=== PATIENT | female | born 1945 | race Caucasian/White ===

== ENCOUNTER 2018-06-29 08:52 | Emergency (ER) | payer MEDICARE, OTHER ==
[~2018-06-29] VITALS: Ht 157.5 cm; Wt 48.5 kg
[2018-06-29] MEDS ORDERED: NS IV 1000 ML 1,000 ML IV SCH ×2 (09:15→11:00)
--- NOTE | 2018-06-29 09:30 | ED General ---
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 Patient reports severe diarrhea and generalized weakness for 5 days, nausea and vomiting started yesterday. Nursing Sepsis Screen: No Definite Risk Source of Information: Patient Exam Limitations: No Limitations History of Present Illness Date Seen by Provider: Jun 29, 2018 Time Seen by Provider: 09:26 Initial Comments Patient is a 72-year-old female presents with acute diarrhea illness for the past several days accompanied with generalized weakness and dizziness.. Patient reports fecal incontinence with multiple bowel movements throughout the day. Bowel movements are nonbloody. No recent antibiotics, history of C. difficile. Patient is currently on chemotherapy every other week for treatment of appendiceal cancer with metastases states she has had intermittent diarrhea on chemotherapy over the past 2 years. Denies nausea, abdominal pain. Does report loss of appetite and decreased oral intake. Patient state that she hours ago and has only had water to drink since that time. No other acute symptoms or complaints. Patient's bedside by spouse. Timing/Duration: 5-6 Days Associated Systoms: Loss of Appetite, Malaise, Weakness Allergies and Home Medications Allergies Coded Allergies: No Known Drug Allergies (Unverified , 06/29/18) Patient Home Medication List Home Medication List Reviewed: Yes Review of Systems Review of Systems Constitutional: dizziness; No fever; malaise EENTM: see HPI Respiratory: no symptoms reported Cardiovascular: No edema, No palpitations, No syncope Gastrointestinal: No abdominal pain; diarrhea; No nausea Genitourinary: No hematuria, No pain Musculoskeletal: no symptoms reported Past Ceogsxr-Zbkays-Qrbmhr Hx Past Med/Social Hx: Reviewed Nursing Past Med/Soc Hx Patient Social History Alcohol Use: Denies Use Recent Foreign Travel: No Contact w/Someone Who Travel: No Recent Infectious Disease Expo: No Physical Exam Vital Signs Vital Signs - First Documented 06/29/18 08:53 Temp 98.6 Pulse 119 Resp 18 B/P (MAP) 124/87 (99) Pulse Ox 100 O2 Delivery Room Air Capillary Refill : Less Than 3 Seconds Height, Weight, BMI Height: 5'2.00" Weight: 107lbs. oz. 48.814363jb; BMI Method:Stated General Appearance: No Apparent Distress Eyes: Bilateral Eye Normal Inspection, Bilateral Eye PERRL, Bilateral Eye EOMI HEENT: PERRL/EOMI, TMs Normal, Normal ENT Inspection, Pharynx Normal; No Moist Mucous Membranes (. Mucous membranes); Other Neck: Full Range of Motion, Normal Inspection, Non Tender, Supple, Carotid Bruit Cardiovascular: Tachycardia Gastrointestinal: Normal Bowel Sounds Rectal: Normal Exam Skin: Normal Color Focused Exam Lactate Level 06/29/18 09:30: Lactic Acid Level 1.69 Lactic Acid Level Laboratory Tests Test 06/29/18 09:30 Lactic Acid Level 1.69 MMOL/L (0.50-2.00) Progress/Results/Core Measures Suspected Sepsis Recent Fever Within 48 Hours: No Infection Criteria Present: None New/Unexplained Altered Menta: No Sepsis Screen: No Definite Risk SIRS Temperature:98.6 Pulse: 119 Respiratory Rate: 18 Laboratory Tests 06/29/18 09:30: White Blood Count 5.7 Blood Pressure 124 /87 Mean: 99 06/29/18 09:30: Lactic Acid Level 1.69 Laboratory Tests 06/29/18 09:30: Creatinine 1.25, Platelet Count 508H, Total Bilirubin 0.2 Results/Orders Lab Results Laboratory Tests Test 06/29/18 09:30 06/29/18 10:30 06/29/18 10:40 Range/Units White Blood Count 5.7 4.3-11.0 10^3/uL Red Blood Count 3.24 L 4.35-5.85 10^6/uL Hemoglobin 9.5 L 11.5-16.0 G/DL Hematocrit 30 L 35-52 % Mean Corpuscular Volume 93 80-99 FL Mean Corpuscular Hemoglobin 29 25-34 PG Mean Corpuscular Hemoglobin Concent 32 32-36 G/DL Red Cell Distribution Width 17.4 H 10.0-14.5 % Platelet Count 508 H 130-400 10^3/uL Mean Platelet Volume 8.9 7.4-10.4 FL Neutrophils (%) (Auto) 75 42-75 % Lymphocytes (%) (Auto) 14 12-44 % Monocytes (%) (Auto) 10 0-12 % Eosinophils (%) (Auto) 0 0-10 % Basophils (%) (Auto) 0 0-10 % Neutrophils # (Auto) 4.3 1.8-7.8 X 10^3 Lymphocytes # (Auto) 0.8 L 1.0-4.0 X 10^3 Monocytes # (Auto) 0.6 0.0-1.0 X 10^3 Eosinophils # (Auto) 0.0 0.0-0.3 10^3/uL Basophils # (Auto) 0.0 0.0-0.1 10^3/uL Sodium Level 144 135-145 MMOL/L Potassium Level 3.7 3.6-5.0 MMOL/L Chloride Level 106 98-107 MMOL/L Carbon Dioxide Level 14 L 21-32 MMOL/L Anion Gap 24 H 5-14 MMOL/L Blood Urea Nitrogen 17 7-18 MG/DL Creatinine 1.25 0.60-1.30 MG/DL Estimat Glomerular Filtration Rate 42 BUN/Creatinine Ratio 14 Glucose Level 103 70-105 MG/DL Lactic Acid Level 1.69 0.50-2.00 MMOL/L Calcium Level 7.9 L 8.5-10.1 MG/DL Corrected Calcium 8.8 8.5-10.1 MG/DL Magnesium Level 1.5 L 1.8-2.4 MG/DL Total Bilirubin 0.2 0.1-1.0 MG/DL Aspartate Amino Transf (AST/SGOT) 18 5-34 U/L Alanine Aminotransferase (ALT/SGPT) 19 0-55 U/L Alkaline Phosphatase 154 H 40-136 U/L Total Protein 5.9 L 6.4-8.2 GM/DL Albumin 2.9 L 3.2-4.5 GM/DL Urine Color YELLOW Urine Clarity CLEAR Urine pH 6.5 5-9 Urine Specific Caro 1.020 1.016-1.022 Urine Protein TRACE NEGATIVE Urine Glucose (UA) NEGATIVE NEGATIVE Urine Ketones TRACE H NEGATIVE Urine Nitrite NEGATIVE NEGATIVE Urine Bilirubin NEGATIVE NEGATIVE Urine Urobilinogen 0.2 NORMAL MG/DL Urine Leukocyte Esterase NEGATIVE NEGATIVE Urine RBC (Auto) TRACE H NEGATIVE Urine RBC 5-10 H /HPF Urine WBC NONE /HPF Urine Squamous Epithelial Cells RARE /HPF Urine Crystals NONE /LPF Urine Bacteria NONE /HPF Urine Casts NONE /LPF Urine Mucus NEGATIVE /LPF Urine Culture Indicated NO My Orders Orders - LUZ AVILA DO Cbc With Automated Diff (06/29/18 08:54) Comprehensive Metabolic Panel (06/29/18 08:54) Ua Culture If Indicated (06/29/18 08:54) Ekg Tracing (06/29/18 08:54) Thyroid Stimulating Hormone (06/29/18 08:58) Ns Iv 1000 Ml (Sodium Chloride 0.9%) (06/29/18 09:15) Blood Culture (06/29/18 09:03) Lactic Acid Analyzer (06/29/18 09:03) Magnesium (06/29/18 08:54) Blood Culture (06/29/18 10:21) Ns Iv 1000 Ml (Sodium Chloride 0.9%) (06/29/18 11:00) Magnesium 1 Gm/100 Ml Ivpb (Magnesium Cristobal (06/29/18 11:00) Vital Signs/I&O 06/29/18 06/29/18 08:53 12:01 Temp 98.6 Pulse 119 69 Resp 18 14 B/P (MAP) 124/87 (99) 105/93 (97) Pulse Ox 100 95 O2 Delivery Room Air Room Air Capillary Refill : Less Than 3 Seconds Blood Pressure Mean: 99 Progress Note : Time: 12:18 Progress Note Patient symptoms significant improvement with IV fluids and antiemetics. Resting comfortably in bed. Recommend continued supportive care with antiemetics at home and home diarrhea medication. Please be follow-up in 1-2 days for reevaluation. Return precautions reviewed Departure Impression Primary Impression: Diarrhea Additional Impressions: Dehydration Hypomagnesemia Disposition: 01 HOME, SELF-CARE Condition: Stable Transfer Method of Transfer: EMS Departure-Patient Inst. Decision time for Depature: 12:20 Add. Discharge Instructions: Please take nausea medication as prescribed and home diarrhea medication as needed. Crease fluid and calorie intake and follow up with PCP in 2-3 days. Return to the ED if new or worsening symptoms. All discharge instructions reviewed with patient and/or family. Voiced understanding. Scripts Ondansetron (Ondansetron Odt) 4 Mg Tab.rapdis 4 MG PO Q6H, #10 TAB Prov: LUZ AVILA DO 06/29/18 LUZ AVILA DO Jun 29, 2018 09:30
[2018-06-29 10:00] LABS: HEMATOCRIT 30 % (35-52); HEMOGLOBIN 9.5 G/DL (11.5-16.0); MEAN CORPUSCULAR HEMOGLOBIN 29 PG (25-34); MEAN CORPUSCULAR HGB CONC 32 G/DL (32-36); MEAN CORPUSCULAR VOLUME 93 FL (80-99); MEAN PLATELET VOLUME 8.9 FL (7.4-10.4); PLATELET COUNT 508 10^3/uL (130-400); RED CELL DISTRIBUTION WIDTH 17.4 % (10.0-14.5); WHITE BLOOD COUNT 5.7 10^3/uL (4.3-11.0)
[2018-06-29 10:01] LABS: BASOPHILS % (AUTO) 0 % (0-10); EOSINOPHILS % (AUTO) 0 % (0-10); LYMPHOCYTES # (AUTO) 0.8 X 10^3 (1.0-4.0); LYMPHOCYTES % (AUTO) 14 % (12-44); MONOCYTES # (AUTO) 0.6 X 10^3 (0.0-1.0); MONOCYTES % (AUTO) 10 % (0-12); NEUTROPHILS # (AUTO) 4.3 X 10^3 (1.8-7.8); NEUTROPHILS % (AUTO) 75 % (42-75)
[2018-06-29 10:16] LABS: ALBUMIN 2.9 GM/DL (3.2-4.5); BILIRUBIN,TOTAL 0.2 MG/DL (0.1-1.0); CALCIUM 7.9 MG/DL (8.5-10.1); CREATININE SERUM 1.25 MG/DL (0.60-1.30); MAGNESIUM 1.5 MG/DL (1.8-2.4); POTASSIUM 3.7 MMOL/L (3.6-5.0); TOTAL PROTEIN 5.9 GM/DL (6.4-8.2)
[2018-06-29] MEDS ORDERED: MAGNESIUM 1 GM/100 ML IVPB 100 ML IV SCH (11:00)
[2018-06-29 11:06] LABS: CLARITY,URINE CLEAR; COLOR,URINE YELLOW; GLUCOSE, URINE (UA) NEGATIVE (NEGATIVE); KETONES,URINE TRACE (NEGATIVE); PH,URINE 6.5 (5-9); PROTEIN,URINE TRACE (NEGATIVE)
[2018-06-29 11:07] LABS: BILIRUBIN,URINE NEGATIVE (NEGATIVE); LEUKOCYTE ESTERASE ,URINE NEGATIVE (NEGATIVE); NITRITE,URINE NEGATIVE (NEGATIVE); SQUAMOUS EPITHELIAL CELL,UR RARE /HPF; UROBILINOGEN,URINE 0.2 MG/DL (NORMAL)
[2018-06-29 12:01] VITALS: BP 105/93
[2018-06-29] MEDS ORDERED: ONDA4TAB11 PO (12:21)
[2018-06-29 13:15] VITALS: BP 110/83
[2018-06-29] MEDS ORDERED: ALPR0.5T7 (14:21)
[2018-06-29] MEDS ORDERED: AMLO5TAB9 (14:21)
[2018-06-29] MEDS ORDERED: TEMA15CA (14:21)
[2018-06-29] MEDS ORDERED: PROC10TA10 (14:21)
[2018-06-29] MEDS ORDERED: [UNRECOGNIZED DRUG - CODE] (14:21)
[2018-06-29] MEDS ORDERED: TEMA30CA (14:21)
[2018-06-29] MEDS ORDERED: LEVO100T7 (14:21)
[2018-06-29] MEDS ORDERED: DOXY100C2 (14:21)
[2018-06-29] MEDS ORDERED: FURO40TA4 (14:21)
[2018-06-29] MEDS ORDERED: CYCL5TAB (14:21)
[2018-06-29] MEDS ORDERED: MORP-34 (14:21)
[2018-06-29] MEDS ORDERED: POTA10CA43 (14:21)
[2018-06-29] MEDS ORDERED: POTA10TA10 (14:21)
[2018-06-29] MEDS ORDERED: LIDO15SO2 (14:21)
[2018-06-29] MEDS ORDERED: MORP-33 (14:21)
[2018-06-29] MEDS ORDERED: HYDR-3816 (14:21)
[2018-06-29] MEDS ORDERED: ONDA8TAB13 (14:21)
--- OUTSIDE RECORDS SUMMARY | 2018-07-01 08:56 | XMS REPORT | Clinical Summary ---
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 Metabolic Panel, Magnesium, Phos - Chemistry sodium, serum 140 mmol/L [phone]/02/05 carbon dioxide, venous blood 26.7 mmol/L 21.0-32.0 potassium, serum 3.9 mmol/L 3.5-5.2 chloride, serum 104 mmol/L 98-107 blood glucose 76 mg/dL 65-95 urea nitrogen, blood 26 mg/dL 7-18 creatinine, serum 1.29 mg/dL 0.60-1.30 Estimated Glomerular Filtration Rate (calc) 43 (?) mL/min/1.73m2 =OR > 60 mL/min alanine aminotransferase (SGPT), serum 19 U/L 12-78 aspartate aminotransferase (SGOT), serum 23 U/L 15-37 calcium, serum 7.5 mg/dL 8.5-10.1 bilirubin, serum, total 0.20 mg/dL 0.00-1.00 Lab Report: CBC W/DIFF, Comp. Metabolic Panel, Magnesium, Phos - Hematology leukocyte count, blood 5.8 10^3/MM^3 10*3/mm3 4.6-10.2 neutrophils as percent of blood leukocytes 54.9 % 42.2-75.2 monocytes as percent of blood leukocytes 13.4 % 1.7-9.3 lymphocytes as percent of blood leukocytes 27.9 % 20.5-51.1 erythrocyte (RBC) count 3.33 10^6/MM^3 10*6/mm3 3.80-5.80 hemoglobin, blood 9.2 g/dL 12.0-16.0 hematocrit, blood 31.7 % 37.0-47.0 mean corpuscular volume, RBC 95 fL 80-97 mean corpuscular hemoglobin, RBC 27.5 pg 27.0-31.2 mean corpuscular hemoglobin concentration, RBC 28.9 G/DL % 31.8- 35.4 red blood cell distribution width 17.6 % 11.6-14.8 platelet count 413 10^3/MM^3 10*3/mm3 142-424 Lab Report: CBC W/DIFF, Comp. Metabolic Panel, Magnesium, Phos - Lab Alkaline phosphatase 183 50-136
--- OUTSIDE RECORDS SUMMARY | 2018-07-01 08:56 | XMS REPORT | Clinical Summary ---
Author Author Admin, KIKI Organization [employer] Address Unknown Phone Unavailable Allergies, Adverse Reactions, [...] Phos - Chemistry sodium, serum 140 mmol/L [phone]/02/05 carbon dioxide, venous blood 26.7 mmol/L 21.0-32.0 [...] 8.5-10.1 bilirubin, serum, total 0.20 mg/dL 0.00-1.00 sodium, serum 142 mmol/L [phone]/02/19 carbon dioxide, venous blood 24.0 mmol/L 21.0-32.0 potassium, serum 4.0 mmol/L 3.5-5.2 chloride, serum 105 mmol/L 98-107 blood glucose 95 mg/dL 65-95 urea nitrogen, blood 29 mg/dL 7-18 creatinine, serum 1.64 mg/dL 0.60-1.30 Estimated Glomerular Filtration Rate (calc) 33 (?) mL/min/1.73m2 =OR > 60 mL/min alanine aminotransferase (SGPT), serum 28 U/L 12-78 aspartate aminotransferase (SGOT), serum 24 U/L 15-37 calcium, serum 7.5 mg/dL 8.5-10.1 bilirubin, serum, total 0.30 mg/dL 0.00-1.00 Lab Report: CBC W/DIFF, Comp. Metabolic Panel, Magnesium, Phos - Hematology leukocyte count, blood 7.3 10^3/MM^3 10*3/mm3 4.6-10.2 neutrophils as percent of blood leukocytes 64.0 % 42.2-75.2 monocytes as percent of blood leukocytes 9.2 % 1.7-9.3 lymphocytes as percent of blood leukocytes 22.6 % 20.5-51.1 erythrocyte (RBC) count 3.65 10^6/MM^3 10*6/mm3 3.80-5.80 hemoglobin, blood 10.8 g/dL 12.0-16.0 hematocrit, blood 34.5 % 37.0-47.0 mean corpuscular volume, RBC 94 fL 80-97 mean corpuscular hemoglobin, RBC 29.6 pg 27.0-31.2 mean corpuscular hemoglobin concentration, RBC 31.3 G/DL % 31.8- 35.4 red blood cell distribution width 17.0 % 11.6-14.8 platelet count 399 10^3/MM^3 10*3/mm3 682-618 2982/02/05 leukocyte count, blood 5.8 10^3/MM^3 10*3/mm3 4.6-10.2 [...] Phos - Lab Alkaline phosphatase 183 50-136 Alkaline phosphatase 188 50-136
--- OUTSIDE RECORDS SUMMARY | 2018-07-01 08:56 | XMS REPORT | Clinical Summary ---
Author Author Admin, KIKI Organization [employer] Address Unknown Phone Unavailable Allergies, Adverse Reactions, [...] Phos - Chemistry sodium, serum 140 mmol/L [phone]/02/05 carbon dioxide, venous blood 26.7 mmol/L 21.0-32.0 [...]
--- OUTSIDE RECORDS SUMMARY | 2018-07-01 08:57 | XMS REPORT | Clinical Summary ---
Author Author Admin, KIKI Organization [employer] Address Unknown Phone Unavailable Allergies, Adverse Reactions, [...] Phos - Chemistry sodium, serum 140 mmol/L [phone]/02/05 carbon dioxide, venous blood 26.7 mmol/L 21.0-32.0 [...]
--- OUTSIDE RECORDS SUMMARY | 2018-07-01 08:57 | XMS REPORT | Clinical Summary ---
Author Author Admin, [facility] Organization [facility] Address Unknown Phone Unavailable Allergies, Adverse Reactions, Alerts Allergy Name Reaction Description Start Date Severity Status Provider Allergies Unknown Conditions or Problems Problem Name Problem Code Onset Date Status Entry Date Provider Comment Standard Description Annotate Appendiceal cancer 153.5 Active Makayla Mariscal LRT Malignant neoplasm of appendix vermiformis Medication List Medication Instructions Start Date Stop Date Generic Name NDC Status Provider Patient Instruction Drug Treatment Unknown - unknown
== END 2018-06-29 12:50 | disposition home or self-care (01) ==
LOC: ER FS 08:55
DX: R19.7 Diarrhea, unspecified (principal); E86.0 Dehydration; E83.42 Hypomagnesemia; C18.1 Malignant neoplasm of appendix; Z86.19 Personal history of other infectious and parasitic diseases
CPT/HCPCS: 36415; 80053; 81000; 83605; 83735; 84443; 85025; 87040

== ENCOUNTER 2018-07-17 12:17 | Inpatient (IN) | payer MEDICARE, OTHER ==
[~2018-07-17] VITALS: Ht 157.5 cm; Wt 51.1 kg
[~2018-07-17 12:17] MED LIST: ALPR0.5T7 PO; AMLO5TAB9 PO; CYCL5TAB PO; DOXY100C2; FURO40TA4; HYDR-3816 PO; LEVO100T7 PO; LIDO15SO2; MORP-33; MORP-34 PO; ONDA4TAB11 PO; ONDA8TAB13; POTA10CA43; POTA10TA10 PO; PROC10TA10; TEMA15CA PO; TEMA30CA; [UNRECOGNIZED DRUG - CODE] PO
[2018-07-17 12:41] VITALS: BP_SYST 104; BP_SYST 75; BP_SYST 89; BP_DIAS 53; BP_DIAS 68; BP_DIAS 69
--- NOTE | 2018-07-17 12:43 | ED Syncope ---
General Stated Complaint: GENERAL WEAKNESS; DIZZY; FALL Source of Information: Patient History of Present Illness Date Seen by Provider: Jul 17, 2018 Time Seen by Provider: 12:29 Initial Comments The patient presents to ER by private conveyance with her spouse and chief complaint that yesterday she had a near syncopal episode and caught herself before she fell completely. She did not pass out and her members the entire event. She was just walking through the kitchen and use the chair to catch her fall. She did not strike her head and is not having any pain nausea fevers chills cough shortness of breath diarrhea or constipation. 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 Trujillo is her oncologist. She was here a few weeks ago because her magnesium was low and had to get a fusion of that. She does not have a history of syncopal episodes or falls. She called her doctor and they ordered some labs for her to do; so she came out to the ER. She' s had a surgery on her abdomen to remove the appendiceal tumor but no other surgeries. She's not sure what medicines she takes. She knows her doctor's been reducing medicines recently and since she's not sure which ones she quit taking in the past week. Allergies and Home Medications Allergies Coded Allergies: No Known Drug Allergies (Unverified , 06/29/18) Home Medications Ondansetron 4 Mg Tab.rapdis, 4 MG PO Q6H Prescribed by: LUZ AVILA on 06/29/18 1221 Patient Home Medication List Home Medication List Reviewed: Yes Review of Systems Constitutional: No chills, No fever EENTM: No ear pain, No eye pain Respiratory: No cough, No short of breath Cardiovascular: No chest pain, No edema, No Hx of Intervention, No palpitations Gastrointestinal: No abdominal pain, No constipation, No diarrhea, No dysphagia , No nausea Genitourinary: No discharge, No dysuria Musculoskeletal: No back pain, No joint pain Skin: No pruritus, No rash Psychiatric/Neurological: Denies Anxiety, Denies Depressed Past Dlqjpbw-Cletwt-Wmsaes Hx Patient Social History Alcohol Use: Denies Use Recreational Drug Use: No Smoking Status: Never a Smoker 2nd Hand Smoke Exposure: No Recent Foreign Travel: No Recent Hopitalizations: No Seasonal Allergies Seasonal Allergies: No Past Medical History Surgeries: No Respiratory: No Cardiac: No Neurological: No Genitourinary: No Gastrointestinal: No Musculoskeletal: No Endocrine: No HEENT: No Cancer: Yes (Primary site: appendix, mets to colon and pancreas) What Type of Treatment Did You: Chemotherapy Psychosocial: No Integumentary: No Blood Disorders: No Physical Exam Vital Signs Vital Signs - First Documented 07/17/18 12:25 Temp 98.8 Pulse 110 Resp 20 B/P (MAP) 125/79 (94) Pulse Ox 98 O2 Delivery Room Air Capillary Refill : Height, Weight, BMI Height: 5'2.00" Weight: 107lbs. oz. 48.009064ia; BMI Method:Stated General Appearance: No Apparent Distress, WD/WN HEENT: PERRL/EOMI, Pharynx Normal, Moist Mucous Membranes, Other (atraumatic head without Crawford sign, raccoon eyes or hemotympanum) Neck: Full Range of Motion, Normal Inspection, Non Tender, Supple, Carotid Bruit Cardiovascular: Regular Rate, Rhythm, No Edema, Normal Peripheral Pulses Respiratory: Lungs Clear, Normal Breath Sounds, No Accessory Muscle Use, No Respiratory Distress Gastrointestinal: Normal Bowel Sounds, Non Tender, Soft Extremities: Normal Capillary Refill, Normal Inspection, Normal Range of Motion , Non Tender, No Calf Tenderness, No Pedal Edema Neurologic/Psychiatric: Alert, Oriented x3, No Motor/Sensory Deficits Focused Exam Sepsis Stage: Septic Shock Possible Source: Genitouriary Lactate Level 07/17/18 14:45: Lactic Acid Level 1.23 Time of Focused Exam: 17:09 Respiratory: Lungs Clear, Normal Breath Sounds, No Accessory Muscle Use, No Respiratory Distress Cardiovascular: Regular Rate, Rhythm, No Edema, Normal Peripheral Pulses Capillary Refill: Less Than 3 Seconds Peripheral Pulses: 2+ Radial Pulses (R), 2+ Radial Pulses (L) Skin: normal color, warm/dry Lactic Acid Level Laboratory Tests Test 07/17/18 14:45 Lactic Acid Level 1.23 MMOL/L (0.50-2.00) Within 3hrs of presentation: Admin fluids, Admin ABX, Blood cultures prior to ABX's, Focus exam, Lactate level, Vasopressin therapy Progress/Results/Core Measures Results/Orders Lab Results Laboratory Tests Test 07/17/18 12:50 07/17/18 13:20 07/17/18 14:45 Range/Units White Blood Count 10.7 4.3-11.0 10^3/uL Red Blood Count 2.94 L 4.35-5.85 10^6/uL Hemoglobin 8.5 L 11.5-16.0 G/DL Hematocrit 26 L 35-52 % Mean Corpuscular Volume 87 80-99 FL Mean Corpuscular Hemoglobin 29 25-34 PG Mean Corpuscular Hemoglobin Concent 29 L 32-36 G/DL Red Cell Distribution Width 17.3 H 10.0-14.5 % Platelet Count 355 130-400 10^3/uL Mean Platelet Volume 9.1 7.4-10.4 FL Neutrophils (%) (Auto) 69 42-75 % Lymphocytes (%) (Auto) 18 12-44 % Monocytes (%) (Auto) 12 0-12 % Eosinophils (%) (Auto) 1 0-10 % Basophils (%) (Auto) 1 0-10 % Neutrophils # (Auto) 7.4 1.8-7.8 X 10^3 Lymphocytes # (Auto) 1.9 1.0-4.0 X 10^3 Monocytes # (Auto) 1.3 H 0.0-1.0 X 10^3 Eosinophils # (Auto) 0.1 0.0-0.3 10^3/uL Basophils # (Auto) 0.1 0.0-0.1 10^3/uL Prothrombin Time 20.3 H 12.2-14.7 SEC INR Comment 1.7 H 0.8-1.4 Activated Partial Thromboplast Time 36 H 24-35 SEC Sodium Level 140 135-145 MMOL/L Potassium Level 3.6 3.6-5.0 MMOL/L Chloride Level 105 98-107 MMOL/L Carbon Dioxide Level 20 L 21-32 MMOL/L Anion Gap 15 H 5-14 MMOL/L Blood Urea Nitrogen 32 H 7-18 MG/DL Creatinine 1.44 H 0.60-1.30 MG/DL Estimat Glomerular Filtration Rate 36 BUN/Creatinine Ratio 22 Glucose Level 75 70-105 MG/DL Calcium Level 7.3 L 8.5-10.1 MG/DL Corrected Calcium 8.9 8.5-10.1 MG/DL Magnesium Level 1.1 L 1.8-2.4 MG/DL Total Bilirubin 0.5 0.1-1.0 MG/DL Aspartate Amino Transf (AST/SGOT) 50 H 5-34 U/L Alanine Aminotransferase (ALT/SGPT) 58 H 0-55 U/L Alkaline Phosphatase 294 H 40-136 U/L Total Protein 4.5 L 6.4-8.2 GM/DL Albumin 2.0 L 3.2-4.5 GM/DL Thyroid Stimulating Hormone (TSH) 45.22 H 0.35-4.94 UIU/ML Urine Color YELLOW Urine Clarity CLOUDY Urine pH 6.0 5-9 Urine Specific [place] 1.010 L 1.016-1.022 Urine Protein TRACE NEGATIVE Urine Glucose (UA) NEGATIVE NEGATIVE Urine Ketones NEGATIVE NEGATIVE Urine Nitrite POSITIVE H NEGATIVE Urine Bilirubin NEGATIVE NEGATIVE Urine Urobilinogen 0.2 NORMAL MG/DL Urine Leukocyte Esterase 3+ H NEGATIVE Urine RBC (Auto) 3+ H NEGATIVE Urine RBC 10+25 /HPF Urine WBC TNTC H /HPF Urine Crystals NONE /LPF Urine Bacteria MODERATE H /HPF Urine Casts NONE /LPF Urine Mucus NEGATIVE /LPF Urine Culture Indicated YES Urine Opiates Screen POSITIVE H NEGATIVE Urine Oxycodone Screen NEGATIVE NEGATIVE Urine Methadone Screen NEGATIVE NEGATIVE Urine Propoxyphene Screen NEGATIVE NEGATIVE Urine Barbiturates Screen NEGATIVE NEGATIVE Ur Tricyclic Antidepressants Screen POSITIVE H NEGATIVE Urine Phencyclidine Screen NEGATIVE NEGATIVE Urine Amphetamines Screen NEGATIVE NEGATIVE Urine Methamphetamines Screen NEGATIVE NEGATIVE Urine Benzodiazepines Screen POSITIVE H NEGATIVE Urine Cocaine Screen NEGATIVE NEGATIVE Urine Cannabinoids Screen NEGATIVE NEGATIVE Lactic Acid Level 1.23 0.50-2.00 MMOL/L My Orders Orders - JANELL ADLER Cbc With Automated Diff (07/17/18 12:34) Comprehensive Metabolic Panel (07/17/18 12:34) Magnesium (07/17/18 12:34) Chest 1 View Ap/Pa Only (07/17/18 12:34) Saline Lock/Iv-Start (07/17/18 12:34) Ekg Tracing (07/17/18 12:34) Continuous Ekg Monitoring (07/17/18 12:34) Orthostatic Vital Signs (Adult (07/17/18 12:34) Drug Screen Stat (Urine) (07/17/18 12:46) Thyroid Stimulating Hormone (07/17/18 12:50) Saline Lock/Iv-Start (07/17/18 13:14) Lactated Ringers (Lr 1000 Ml Iv Solution (07/17/18 13:14) Ua Culture If Indicated (07/17/18 13:25) Urine Culture (07/17/18 13:20) Ceftriaxone For Iv Use (Rocephin For I (07/17/18 14:00) Protime With Inr (07/17/18 14:04) Partial Thromboplastin Time (07/17/18 14:04) Blood Culture (07/17/18 14:04) Lactic Acid Analyzer (07/17/18 14:04) Saline Lock/Iv-Start (07/17/18 14:31) Lactated Ringers (Lr 1000 Ml Iv Solution (07/17/18 14:31) Medications Given in ED Current Medications Medications Dose Ordered Sig/Kamryn Route Start Time Stop Time Status Last Admin Dose Admin Ceftriaxone Sodium 1000 mg/ Sterile Water 10 ml @ 200 mls/hr ONCE ONCE IV 07/17/18 14:00 07/17/18 14:02 DC 07/17/18 14:16 200 MLS/HR Lactated Ringer's 1,000 ml @ 0 mls/hr Q0M ONCE IV 07/17/18 13:14 07/17/18 13:16 DC 07/17/18 13:30 999 MLS/HR Lactated Ringer's 1,000 ml @ 0 mls/hr Q0M ONCE IV 07/17/18 14:31 07/17/18 14:33 DC 07/17/18 15:00 999 MLS/HR Vital Signs/I&O 07/17/18 07/17/18 12:25 12:41 Temp 98.8 Pulse 110 95 102 104 Resp 20 B/P (MAP) 125/79 (94) 104/68 (80) 89/69 (76) 75/53 (60) Pulse Ox 98 O2 Delivery Room Air Progress Progress Note #1: Time: 12:44 Progress Note We'll initiate a syncopal workup looking for anemia, evidence of infection, electrolyte disturbances, orthostasis. We'll obtain a chest x-ray. Well score puts her at one point. Low risk group: 1.3% chance of PE in an ED population. Her medication list includes opiates, Lasix, benzodiazepines and other medications that can increase her risk of syncopal falls. We are not sure where she is still taking if she has recently stopped some of her home medicines. We' ll obtain a TSH and urine drug screen. Progress Note #2: Time: 14:00 Progress Note Patient's orthostatics are positive we'll give her a liter fluids which is 20 cc /kg about 800 cc. We'll give her Rocephin for her UTI. Technically with her low blood pressure and tachycardia that she would qualify for sepsis we will offer her a stay in the hospital. We'll obtain blood cultures. Her alkaline phosphatase has elevated since 3 weeks ago when it was drawn and probably reflects ongoing metastatic disease. We don't have the ability to check an ammonia. She's not having any abdominal discomfort. Her TSH was 56 3 weeks ago but is a send out here so we will know the result until later today. Gave her another 500 cc bolus of LR and then started her 100 mL per hour LR which would complete a 30 mL/kg bolus. Progress Note #3: Time: 16:45 Progress Note Patient's blood pressure has been soft with increased her fluids to 250 an hour and her map to 74 right now but her systolic is 95/69. She has a central port. If we need to give pressors would initiate him right now but I will update the accepting physician of this change. Progress Note #4: Time: 17:15 Progress Note Levophed was initiated at 5 mcg/m because the man reached 65. We decreased the fluids to 150 so as not to cause pulmonary edema. As she was leaving her blood pressures 115 systolic. Initial ECG Impression Date: Jul 17, 2018 Initial ECG Impression Time: 12:58 Initial ECG Rate: 93 Initial ECG Rhythm: Normal Sinus Initial ECG Intervals: Normal Initial ECG Impression: Normal Initial ECG Comparisson: No Previous ECG Available Comment Normal sinus rhythm without ST elevation or depression. Diagnostic Imaging Diagonstic Imaging: Xray Plain Films/CT/US/NM/MRI: chest (1v) Comments [facility] [employer] [place] NAME: TAWANADOLORESStephan Otoole [facility] REC#: [id number] PT STATUS: REG ER : 1945 PHYSICIAN: JANELL ADLER MD ADMIT DATE: 07/17/18/ER FS Draft Date of Exam:07/17/18 CHEST 1 VIEW AP/PA ONLY INDICATION: General weakness. TIME OF EXAMINATION: 12:29 PM. COMPARISON: No prior studies are available for comparison. FINDINGS: The left subclavian port has its tip overlying the SVC. The lungs are clear of acute infiltrates. There are scattered calcified granulomas. No effusion or pneumothorax is identified. IMPRESSION: No acute cardiopulmonary process is detected. Dictated on workstation # [id number] Dict: 07/17/18 1338 Trans: 07/17/18 1339 [id number] Interpreted by: LOREN CORREA MD Electronically signed by: Reviewed: Reviewed by Me Departure Impression Primary Impression: UTI (urinary tract infection) Qualified Codes: N30.00 - Acute cystitis without hematuria Additional Impressions: Postural dizziness with near syncope Orthostatic hypotension Opiate use Benzodiazepine causing adverse effect in therapeutic use Qualified Codes: T42.4X5A - Adverse effect of benzodiazepines, initial encounter On tricyclic antidepressant therapy History of malignant neoplasm of appendix Septic shock Disposition: XFER SHT-TRM HOSP Condition: Stable Transfer Time Spoke to Accepting Phy: 14:40 Transfer Progress Notes Discussed the case with Dr. Simental and she accepts the patient to the floor. A room was called for from nursing machine shop supervisor. 1645: Discussed the updated version of the case where the patient's systolic pressures slipping down below 90 map as stated above 67. She has a central port if we need to use pressors and overnight sheet for a goal of 65 or above. Presently the map is 74. She agrees with transferring the patient to the ICU instead of the floor. Discussed the case with warehouse team leader, Regina, and she placed the patient in ICU 8. Transfer Time: 17:19 Transfer Facility: [facility] [place], [place] Method of Transfer: EMS Departure-Patient Inst. Referrals: [facility] (PCP/Family) Primary Care Physician JANELL ADLER Jul 17, 2018 12:43
[2018-07-17 13:04] LABS: BASOPHILS % (AUTO) 1 % (0-10); EOSINOPHILS % (AUTO) 1 % (0-10); HEMATOCRIT 26 % (35-52); HEMOGLOBIN 8.5 G/DL (11.5-16.0); LYMPHOCYTES % (AUTO) 18 % (12-44); MEAN CORPUSCULAR HEMOGLOBIN 29 PG (25-34); MEAN CORPUSCULAR HGB CONC 29 G/DL (32-36); MEAN CORPUSCULAR VOLUME 87 FL (80-99); MEAN PLATELET VOLUME 9.1 FL (7.4-10.4); MONOCYTES % (AUTO) 12 % (0-12); NEUTROPHILS % (AUTO) 69 % (42-75); PLATELET COUNT 355 10^3/uL (130-400); RED CELL DISTRIBUTION WIDTH 17.3 % (10.0-14.5); WHITE BLOOD COUNT 10.7 10^3/uL (4.3-11.0)
[2018-07-17 13:05] LABS: BASOPHILS # (AUTO) 0.1 10^3/uL (0.0-0.1); EOSINOPHILS # (AUTO) 0.1 10^3/uL (0.0-0.3); LYMPHOCYTES # (AUTO) 1.9 X 10^3 (1.0-4.0); MONOCYTES # (AUTO) 1.3 X 10^3 (0.0-1.0); NEUTROPHILS # (AUTO) 7.4 X 10^3 (1.8-7.8)
[2018-07-17] MEDS ORDERED: LACTATED RINGERS 1,000 ML IV ONE ×2 (13:14→14:31)
[2018-07-17 13:26] LABS: CREATININE SERUM 1.44 MG/DL (0.60-1.30); POTASSIUM 3.6 MMOL/L (3.6-5.0)
[2018-07-17 13:27] LABS: BILIRUBIN,TOTAL 0.5 MG/DL (0.1-1.0); CALCIUM 7.3 MG/DL (8.5-10.1); MAGNESIUM 1.1 MG/DL (1.8-2.4); TOTAL PROTEIN 4.5 GM/DL (6.4-8.2)
--- NOTE | 2018-07-17 13:40 | Diagnostic Imaging Report ---
INDICATION: General weakness. TIME OF EXAMINATION: 12:29 PM. COMPARISON: No prior studies are available for comparison. FINDINGS: The left subclavian port has its tip overlying the SVC. The lungs are clear of acute infiltrates. There are scattered calcified granulomas. No effusion or pneumothorax is identified. IMPRESSION: No acute cardiopulmonary process is detected. Dictated by: Dictated on workstation # [id number]
[2018-07-17 13:42] LABS: COLOR,URINE YELLOW
[2018-07-17 13:43] LABS: BACTERIA,URINE MODERATE /HPF; BILIRUBIN,URINE NEGATIVE (NEGATIVE); CLARITY,URINE CLOUDY; GLUCOSE, URINE (UA) NEGATIVE (NEGATIVE); KETONES,URINE NEGATIVE (NEGATIVE); LEUKOCYTE ESTERASE ,URINE 3+ (NEGATIVE); NITRITE,URINE POSITIVE (NEGATIVE); PROTEIN,URINE TRACE (NEGATIVE); RBC,URINE 10+25 /HPF; UROBILINOGEN,URINE 0.2 MG/DL (NORMAL); WBC,URINE TNTC /HPF
[2018-07-17] MEDS ORDERED: cefTRIAXone FOR IV USE 1,000 MG in WATER (STERILE) FOR INJECTION 10 ML IV ONE (14:00)
[2018-07-17 14:04] LABS: AMPHETAMINE SCREEN, URINE NEGATIVE (NEGATIVE); BARBITURATE SCREEN URINE NEGATIVE (NEGATIVE); BENZODIAZEPINES SCREEN URINE POSITIVE (NEGATIVE); CANNABINOID SCREEN, URINE NEGATIVE (NEGATIVE); COCAINE SCREEN URINE NEGATIVE (NEGATIVE); METHADONE STAT NEGATIVE (NEGATIVE); METHAMPHETAMINE SCREEN URINE S NEGATIVE (NEGATIVE); OPIATE SCREEN URINE POSITIVE (NEGATIVE); OXYCODONE STAT NEGATIVE (NEGATIVE); PROPOXYPHENE STAT NEGATIVE (NEGATIVE); TRICYCLIC ANTIDEPRESSANTS SCRE POSITIVE (NEGATIVE)
[2018-07-17 14:31] LABS: INR 1.7 (0.8-1.4); PROTHROMBIN TIME PATIENT 20.3 SEC (12.2-14.7)
--- NOTE | 2018-07-17 15:35 | NUR ---
DISPATCH FOR [facility], CURRENTLY IN ROUTE OUT OF [facility]. WE WILL WAIT RETURN.
--- NOTE | 2018-07-17 16:00 | NUR ---
NOTE NIBP TRENDING DOWN POST BOLUS RATE SLOWED TO 150 ML/HR. DR ADLER OBSERVING TRENDS.
[2018-07-17] MEDS ORDERED: D5W IV SOLUTION (EXCEL) 250 ML IV ONE (16:59)
[2018-07-17] MEDS ORDERED: NOREPINEPHRINE 4 MG/4 ML (LEVOPHED) AMP IV ONE (16:59)
--- NOTE | 2018-07-17 17:00 | NUR ---
NIBP NOTED 85/58, DR ADLER NOTIFIED. PLAN TO DECRESE THE LR 250 ML BOLUS TO KVO AND BEGIN LEVOPHED TO PORT CHEL.
--- NOTE | 2018-07-17 17:05 | NUR ---
LEVOPHED BEGAN AT 5 MCG/MIN PER HUMPHREY PUMP. REPORT TO [facility], KANWAL JARRETT.
[2018-07-17] MEDS ORDERED: NOREPINEPHRINE 4 MG in NS (IVPB) 250 ML IV SCH (17:15)
--- NOTE | 2018-07-17 17:15 | NUR ---
PT DEPARTING WITH [facility] WITH LEVOPHED INFUSING AND LR AT KVO, 150 ML CREDIT. NIBP 117/83 NOW.
[2018-07-17] MEDS ORDERED: IBUPROFEN 800 MG (MOTRIN) TAB PO PRN (18:45)
[2018-07-17] MEDS ORDERED: ACETAMINOPHEN 500 MG TAB (TYLENOL) PO PRN (18:45)
[2018-07-17] MEDS ORDERED: NOREPINEPHRINE 4 MG/NS 250 ML DRIP IV SCH ×2 (18:45)
[2018-07-17] MEDS ORDERED: CATHETER FLUSH 10 ML SYR IV PRN (18:45)
[2018-07-17] MEDS ORDERED: ONDANSETRON 4 MG/2 ML (SDV) Z0FRAN IV PRN (18:45)
[2018-07-17] MEDS: LACTATED RINGERS 1,000 ML IV SCH (19:00)
[2018-07-17 19:07] VITALS: BP 102/81
[2018-07-17 20:00] VITALS: BP 94/64
[2018-07-17 21:00] VITALS: BP 108/71
[2018-07-17] MEDS: LEVOTHYROXINE 100 MCG (LEVOTHROID) TAB PO SCH (21:50)
[2018-07-17 22:00] VITALS: BP 108/71
[2018-07-17 23:00] VITALS: BP 106/71
[2018-07-18] VITALS (24 sets, daily range): BP systolic 94–127; BP diastolic 61–93
[2018-07-18 03:55] LABS: BASOPHILS % (AUTO) 1 % (0-10); EOSINOPHILS # (AUTO) 0.2 10^3/uL (0.0-0.3); EOSINOPHILS % (AUTO) 2 % (0-10); HEMATOCRIT 24 % (35-52); HEMOGLOBIN 7.8 G/DL (11.5-16.0); LYMPHOCYTES # (AUTO) 1.5 X 10^3 (1.0-4.0); LYMPHOCYTES % (AUTO) 20 % (12-44); MEAN CORPUSCULAR HEMOGLOBIN 28 PG (25-34); MEAN CORPUSCULAR HGB CONC 33 G/DL (32-36); MEAN CORPUSCULAR VOLUME 87 FL (80-99); MONOCYTES # (AUTO) 1.1 X 10^3 (0.0-1.0); MONOCYTES % (AUTO) 14 % (0-12); NEUTROPHILS % (AUTO) 64 % (42-75); PLATELET COUNT 335 10^3/uL (130-400); RED CELL DISTRIBUTION WIDTH 17.6 % (10.0-14.5); WHITE BLOOD COUNT 7.9 10^3/uL (4.3-11.0)
[2018-07-18 04:12] LABS: PHOSPHORUS 2.3 MG/DL (2.3-4.7)
[2018-07-18 04:13] LABS: CALCIUM 7.3 MG/DL (8.5-10.1); CREATININE SERUM 1.04 MG/DL (0.60-1.30)
[2018-07-18 04:18] LABS: MAGNESIUM 0.9 MG/DL (1.8-2.4)
[2018-07-18] MEDS: POTASSIUM CL 10MEQ/50ML IVPB 50 ML IV SCH (04:22)
[2018-07-18] MEDS: MAGNESIUM 1 GM/100 ML IVPB 100 ML IV SCH ×7 (04:22→18:07)
[2018-07-18] MEDS: KCL 20 MEQ TAB (K-DUR) PO SCH (04:22)
[2018-07-18] MEDS ORDERED: MAGNESIUM 1 GM/100 ML IVPB 600 ML IV ONE (04:25)
[2018-07-18] MEDS: LACTATED RINGERS 1,000 ML IV SCH ×2 (04:29→18:07)
[2018-07-18] MEDS: LEVOTHYROXINE 100 MCG (LEVOTHROID) TAB PO SCH (06:45)
[2018-07-18] MEDS: cefTRIAXone FOR IV USE 1,000 MG in WATER (STERILE) FOR INJECTION 10 ML IV SCH (09:09)
[2018-07-18] MEDS ORDERED: ONDA4TAB11 PO (10:02)
--- NOTE | 2018-07-18 10:12 | NUR ---
SPOKE WITH THE PATIENT ABOUT HER MEDICATIONS. SHE VERIFIED SHE GETS ALL OF HER MEDS FILLED AT [facility] IN [place]. SHE STATES SHE DOES NOT TAKE ANYTHING OTC. WE WENT OVER THE EXT MED HX AND SHE VERIFIED HOW SHE TAKES HER MEDS. SHE STATES SHE STOPPED TAKING SOME RECENTLY BUT SHE DOES NOT KNOW WHICH ONES. SHE JUST FEELS LIKE SHE IS TAKING TOO MANY MEDS. WE UPDATED THE MED LIST TO WHAT SHE IS CURRENTLY TAKING MOST OF THE TIME BEST SHE CAN REMEMBER. HER POTASSIUM 10MEQ WAS FILLED #60 06-28-18 HOWEVER SHE STATES SHE TAKES IT ONCE DAILY. HER TEMAZEPAM 15MG IS FILLED #60 06-28-18 HOWEVER SHE STATES SHE ONLY TAKES 1 HS. HER MORPHINE ER 30MG IS FILLED #60 06-04-18 HOWEVER SHE ONLY TAKES ONE IN THE EVENING. SHE HAS NOT FILLED LEVOTHYROXINE 100MCG SINCE 04-26-18 #30- SHE STATES SHE TAKES 1/2 TAB DAILY HOWEVER IT IS STILL PAST DUE FOR REFILL. I NOTED THE PAST DUE DATE ON THE MED REC. SHE FILLED DOXYCYCLINE 100MG #60 05-29-18 AND FUROSEMIDE 40MG #30 05-28-18 HOWEVER SHE DOES NOT THINK SHE IS TAKING EITHER OF THESE, THEY DO NOT SOUND FAMILIAR TO HER. SHE IS PAST DUE FOR REFILL WELL. I DID NOT INCLUDE THEM ON THE MED REC AT THIS TIME.
--- NOTE | 2018-07-18 15:24 | Diagnostic Imaging Report ---
INDICATION: Sepsis. TIME OF EXAM: 3:14 AM Correlation is made with prior study one day earlier. FINDINGS: Left chest wall port has tip overlying the SVC. Calcified nodules in the lungs noted consistent with granulomas. There is no infiltrate or failure. No effusion or pneumothorax is seen. IMPRESSION: Stable chest. No acute feature is detected. Dictated by: Dictated on workstation # [id number]
--- NOTE | 2018-07-18 17:06 | History & Physicial (CHS) ---
HPI History of Present Illness: 72 yo F with known appendiceal ca with abdominal metastasis to bowel and liver that was admitted from [facility] after near syncopal episode. Patient states that she had not been feeling well for the last few days prior to admission. States that she has had increase in urination but denies and pain or hematuria. States that she has been doing chemo but has not had any for a few weeks. She denies any chest pain, shortness of breath or any other related symptoms. Source: patient, RN/MD Exam Limitations: no limitations Date seen by provider: Jul 18, 2018 Time Seen by Provider: 09:15 Attending Physician Virginia Simental MD PCP Center/[facility] Consult Date of Admission Jul 17, 2018 at 14:50 Home Medications Home Medications Reviewed patient Home Medication Reconciliation performed by pharmacy medication reconciliations special equipment technician and/or nursing. Patients Allergies have been reviewed. Allergies Coded Allergies: No Known Drug Allergies (Unverified , 06/29/18) GBR-[id number]-[id number] Hx Patient Social History Alcohol Use: Denies Use Recreational Drug Use: No Smoking Status: Never a Smoker 2nd Hand Smoke Exposure: No Recent Foreign Travel: No Contact w/other who traveled: No Recent Hopitalizations: No Recent Infectious Disease Expo: No Immunizations Up To Date Date of Influenza Vaccine: Jan 29, 2018 Past Medical History HTN Hypothyroidism Cancer of the Appendix Family Medical History Significant Family History: No Pertinent Family Hx Review of Systems (CHC) Constitutional: No chills, No fever; malaise, weakness EENTM: no symptoms reported Respiratory: no symptoms reported; No cough, No dyspnea on exertion, No short of breath Cardiovascular: no symptoms reported; No edema, No palpitations Gastrointestinal: abdominal pain; No constipation, No diarrhea; loss of appetite; No nausea, No vomiting Genitourinary: No dysuria; frequency; No hematuria : No Musculoskeletal: back pain Skin: no symptoms reported Psychiatric/Neurological: No Symptoms Reported Reviewed Test Results Reviewed Test Results Lab Laboratory Tests Test 07/18/18 03:45 Range/Units White Blood Count 7.9 4.3-11.0 10^3/uL Red Blood Count 2.74 L 4.35-5.85 10^6/uL Hemoglobin 7.8 L 11.5-16.0 G/DL Hematocrit 24 L 35-52 % Mean Corpuscular Volume 87 80-99 FL Mean Corpuscular Hemoglobin 28 25-34 PG Mean Corpuscular Hemoglobin Concent 33 32-36 G/DL Red Cell Distribution Width 17.6 H 10.0-14.5 % Platelet Count 335 130-400 10^3/uL Mean Platelet Volume 9.0 7.4-10.4 FL Neutrophils (%) (Auto) 64 42-75 % Lymphocytes (%) (Auto) 20 12-44 % Monocytes (%) (Auto) 14 H 0-12 % Eosinophils (%) (Auto) 2 0-10 % Basophils (%) (Auto) 1 0-10 % Neutrophils # (Auto) 5.0 1.8-7.8 X 10^3 Lymphocytes # (Auto) 1.5 1.0-4.0 X 10^3 Monocytes # (Auto) 1.1 H 0.0-1.0 X 10^3 Eosinophils # (Auto) 0.2 0.0-0.3 10^3/uL Basophils # (Auto) 0.0 0.0-0.1 10^3/uL Sodium Level 140 135-145 MMOL/L Potassium Level 4.0 3.6-5.0 MMOL/L Chloride Level 109 H 98-107 MMOL/L Carbon Dioxide Level 23 21-32 MMOL/L Anion Gap 8 5-14 MMOL/L Blood Urea Nitrogen 24 H 7-18 MG/DL Creatinine 1.04 0.60-1.30 MG/DL Estimat Glomerular Filtration Rate 52 BUN/Creatinine Ratio 23 Glucose Level 65 L 70-105 MG/DL Calcium Level 7.3 L 8.5-10.1 MG/DL Phosphorus Level 2.3 2.3-4.7 MG/DL Magnesium Level 0.9 *L 1.8-2.4 MG/DL Physical Exam-(CHC) Physical Exam Vital Signs VS - Last 72 Hours, by Label 07/17/18 07/17/18 07/17/18 07/17/18 12:25 12:25 12:41 13:00 Temp 98.8 98.8 Pulse 110 110 95 95 102 104 Resp 20 20 20 B/P (MAP) 125/79 (94) 125/79 104/68 (80) 105/72 89/69 (76) 75/53 (60) Pulse Ox 98 98 98 O2 Delivery Room Air Room Air Room Air 3/07/17/18 07/17/18 07/17/18 14:00 15:00 16:00 17:00 Temp 97.0 Pulse 86 88 100 96 Resp 20 20 20 20 B/P (MAP) 116/77 109/74 99/68 85/58 Pulse Ox 97 96 99 97 O2 Delivery Room Air Room Air Room Air Room Air 07/17/18 07/17/18 07/17/18 07/17/18 17:15 17:15 18:20 18:44 Temp 97.0 97.0 Pulse 92 92 104 Resp 20 20 B/P (MAP) 117/83 (94) 117/83 Pulse Ox 96 96 96 O2 Delivery Room Air Room Air Room Air 07/17/18 07/17/18 07/17/18 07/17/18 19:00 19:07 19:46 20:00 Temp 97.2 Pulse 100 98 Resp 34 B/P (MAP) 102/81 (88) Pulse Ox 98 97 O2 Delivery Room Air Room Air 07/17/18 07/17/18 07/17/18 07/17/18 20:00 21:00 22:00 23:00 Pulse 86 86 85 85 Resp 14 12 14 16 B/P (MAP) 94/64 (74) 108/71 (83) 108/71 (83) 106/71 (83) Pulse Ox 98 98 97 96 O2 Delivery Room Air Room Air Room Air Room Air 07/18/18 07/18/18 07/18/18 07/18/18 00:00 00:00 00:00 01:00 Temp 97.8 Pulse 85 85 Resp 15 18 B/P (MAP) 102/70 (81) 107/69 (82) Pulse Ox 97 97 97 O2 Delivery Room Air Room Air Room Air 07/18/18 07/18/18 07/18/18 07/18/18 01:00 02:00 03:00 04:00 Pulse 85 87 87 Resp 14 17 B/P (MAP) 122/79 (93) 109/74 (86) Pulse Ox 99 97 97 O2 Delivery Room Air Room Air Room Air 07/18/18 07/18/18 07/18/18 07/18/18 04:00 04:00 05:00 06:00 Temp 97.1 Pulse 88 86 89 Resp 15 34 17 B/P (MAP) 116/76 (89) 102/69 (80) 108/73 (85) Pulse Ox 97 95 95 O2 Delivery Room Air Room Air Room Air 07/18/18 07/18/18 07/18/18 07/18/18 07:00 07:00 08:00 08:00 Pulse 86 86 84 Resp 20 18 B/P (MAP) 96/65 (75) 99/69 (79) Pulse Ox 97 95 97 O2 Delivery Room Air Room Air Room Air 07/18/18 07/18/18 07/18/18 07/18/18 09:00 10:00 11:00 12:00 Pulse 86 92 92 89 Resp 16 15 16 23 B/P (MAP) 116/72 (87) 101/64 (76) 100/77 (85) 100/67 (78) Pulse Ox 96 96 98 98 O2 Delivery Room Air Room Air Room Air Room Air 07/18/18 07/18/18 07/18/18 07/18/18 12:00 13:00 13:00 14:00 Pulse 87 87 96 Resp 14 22 B/P (MAP) 94/67 (76) 97/76 (83) Pulse Ox 97 100 99 O2 Delivery Room Air Room Air Room Air 07/18/18 07/18/18 07/18/18 07/18/18 15:00 16:00 16:00 17:00 Pulse 90 86 84 Resp 19 22 19 B/P (MAP) 95/61 (72) 112/79 (90) 111/70 (84) Pulse Ox 96 97 97 96 O2 Delivery Room Air Room Air Room Air Room Air 07/18/18 18:00 Pulse 86 Resp 18 B/P (MAP) 115/73 (87) Pulse Ox 99 O2 Delivery Room Air Capillary Refill : Less Than 3 Seconds General Appearance: thin (frail elderly female, NAD) Respiratory: chest non-tender, lungs clear, normal breath sounds, no respiratory distress, no accessory muscle use Cardiovascular: normal peripheral pulses, regular rate, rhythm, no edema, no murmur Gastrointestinal: normal bowel sounds, soft, tenderness (diffuse ttp, no rebound or guarding) Back: no CVA tenderness, no vertebral tenderness Extremities: no pedal edema, no calf tenderness, normal capillary refill 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, alert, normal mood/affect, oriented x 3 Skin: normal color, warm/dry Lymphatic: no adenopathy Assessment/Plan Assessment/Plan Admission Status: Inpatient Order (span 2 midnights) Reason for Inpatient Admission: Requiring aggressive IVFs and IV antibiotics with frequent vital signs (1) Sepsis Status: Acute Assessment & Plan: 07/18: Received IVFs 30ml/kg prior to leaving [facility], Started on IV antibiotics after cultures obtained, Central line placed Qualifiers: Qualified Codes: A41.9 - Sepsis, unspecified organism (2) Acute kidney failure Status: Acute Assessment & Plan: 07/18: Continue with IVF hydration, repeat improving (3) UTI (urinary tract infection) Status: Acute Qualifiers: Qualified Codes: N30.00 - Acute cystitis without hematuria (4) Hypothyroidism Status: Chronic Assessment & Plan: 07/18 Restarted home med, will need repeat in 4 weeks (5) Pre-syncope Status: Acute Assessment & Plan: 07/18: Likely 2/2 to sepsis, will order PT for tomorrow since decreasing IVFs (6) Normocytic anemia Status: Chronic Assessment & Plan: 07/18: No signs of acute bleeding, likely 2/2 to chemo, Iron panel pending (7) Elevated LFTs Status: Chronic Assessment & Plan: 07/18: 2/2 to Liver mets (8) Hypomagnesemia Status: Acute Assessment & Plan: 07/18: Replace and repeat level (9) History of malignant neoplasm of appendix Status: Acute (10) DVT prophylaxis Clinical Quality Measures DVT/VTE Risk/Contraindication: Risk Factor Score Per Nursin RFS Level Per Nursing on Admit: 4+=Very High VIRGINIA SIMENTAL MD Jul 18, 2018 17:06
[2018-07-19] VITALS (10 sets, daily range): BP systolic 110–132; BP diastolic 77–100
[2018-07-19] MEDS: LACTATED RINGERS 1,000 ML IV SCH (00:45)
[2018-07-19 03:52] LABS: BASOPHILS % (AUTO) 0 % (0-10); EOSINOPHILS # (AUTO) 0.1 10^3/uL (0.0-0.3); EOSINOPHILS % (AUTO) 1 % (0-10); HEMATOCRIT 24 % (35-52); HEMOGLOBIN 8.3 G/DL (11.5-16.0); LYMPHOCYTES # (AUTO) 1.1 X 10^3 (1.0-4.0); LYMPHOCYTES % (AUTO) 11 % (12-44); MEAN CORPUSCULAR HEMOGLOBIN 29 PG (25-34); MEAN CORPUSCULAR HGB CONC 34 G/DL (32-36); MEAN CORPUSCULAR VOLUME 86 FL (80-99); MEAN PLATELET VOLUME 9.6 FL (7.4-10.4); MONOCYTES # (AUTO) 1.1 X 10^3 (0.0-1.0); MONOCYTES % (AUTO) 11 % (0-12); NEUTROPHILS # (AUTO) 7.8 X 10^3 (1.8-7.8); NEUTROPHILS % (AUTO) 78 % (42-75); PLATELET COUNT 320 10^3/uL (130-400); RED CELL DISTRIBUTION WIDTH 17.6 % (10.0-14.5); WHITE BLOOD COUNT 10.1 10^3/uL (4.3-11.0)
[2018-07-19 04:13] LABS: CALCIUM 7.3 MG/DL (8.5-10.1); CREATININE SERUM 0.97 MG/DL (0.60-1.30); MAGNESIUM 2.6 MG/DL (1.8-2.4); POTASSIUM 3.9 MMOL/L (3.6-5.0)
[2018-07-19] MEDS: POTASSIUM CL 10MEQ/50ML IVPB 50 ML IV SCH (05:03)
[2018-07-19] MEDS: MAGNESIUM 1 GM/100 ML IVPB 100 ML IV SCH (05:03)
[2018-07-19] MEDS: KCL 20 MEQ TAB (K-DUR) PO SCH (05:03)
[2018-07-19] MEDS: LEVOTHYROXINE 100 MCG (LEVOTHROID) TAB PO SCH (06:22)
[2018-07-19] MEDS: cefTRIAXone FOR IV USE 1,000 MG in WATER (STERILE) FOR INJECTION 10 ML IV SCH (08:24)
--- NOTE | 2018-07-19 11:20 | Discharge Summary ---
Diagnosis/Chief Complaint Date of Admission Jul 17, 2018 at 14:50 Date of Discharge 07/19/18 Admission Diagnosis Admission Diagnosis See Below Discharge Diagnosis See Problem list Problems/Diagnosis: (1) Sepsis Assessment & Plan: 07/18: Received IVFs 30ml/kg prior to leaving [facility], Started on IV antibiotics after cultures obtained, Central line placed 07/19: HDS at time of discharge, holding blood pressure meds until seen by PCP, Continue total of 7 days of antibiotics as outpatient Qualifiers: Qualified Codes: A41.9 - Sepsis, unspecified organism Status: Acute (2) Acute kidney failure Assessment & Plan: 07/18: Continue with IVF hydration, repeat improving 07/19: Resolved with IVF hydration Status: Acute (3) UTI (urinary tract infection) Qualifiers: Qualified Codes: N30.00 - Acute cystitis without hematuria Status: Acute (4) Hypothyroidism Assessment & Plan: 07/18 Restarted home med, will need repeat in 4 weeks Status: Chronic (5) Pre-syncope Assessment & Plan: 07/18: Likely 2/2 to sepsis, will order PT for tomorrow since decreasing IVFs 07/19: Holding blood pressure meds until seen by PCP Status: Acute (6) Normocytic anemia Assessment & Plan: 07/18: No signs of acute bleeding, likely 2/2 to chemo, Iron panel pending Status: Chronic (7) Elevated LFTs Assessment & Plan: 07/18: 2/2 to Liver mets Status: Chronic (8) Hypomagnesemia Assessment & Plan: 07/18: Replace and repeat level Status: Acute (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 Patient states that she had not been feeling well for the last few days prior to admission. States that she has had increase in urination but denies and pain or hematuria. States that she has been doing chemo but has not had any for a few weeks. She denies any chest pain, shortness of breath or any other related symptoms. Discharge Summary-Simple/Stand Consultations Discharge Physical Examination Allergies: Coded Allergies: No Known Drug Allergies (Unverified , 06/29/18) Vitals & I&Os Vital Sign - Last 12Hours Date Time Temp Pulse Resp B/P (MAP) Pulse Ox O2 Delivery O2 Flow Rate FiO2 07/19/18 09:00 97 119/80 (93) 96 Room Air 07/19/18 08:00 20 07/19/18 04:00 97.6 Intake and Output 07/19/18 00:00 Intake Total 590 ml Output Total 750 ml Balance -160 ml General Appearance: Alert, Oriented X3, Cooperative, No Acute Distress HEENT: Mucous Memb Moist/Hana Respiratory: Clear to Auscultation, Normal Air Movement Cardiovascular: Regular Rate, No Murmurs Abdominal: Normal Bowel Sounds, Soft, No Tenderness, No Masses Extremities: No Edema, No Tenderness/Swelling Skin: No Rashes, No Breakdown Neuro: Strength at 5/5 X4 Ext, Cranial Nerves 3-12 NL Psych/Mental Status: Mental Status NL, Mood NL Hospital Course Was the Problem List Reviewed?: Yes See final discharge diagnosis. Discussion & Recommendations 72 yo F with known cancer in the appendix that has been undergoing chemo. Presented to ER meeting sepsis criteria and found to have UTI. Culture pending. Patient improved with IVF hydration and IV antibiotics. Has close follow up with Oncology next week. Discharge Condition at discharge stable Instructions to patient/family Please see electronic discharge instructions given to patient. Discharge Medications Reviewed and agree with Discharge Medication list on patient's Discharge Instruction sheet Clinical Quality Measures DVT/VTE Risk/Contraindication: Risk Factor Score Per Nursin RFS Level Per Nursing on Admit: 4+=Very High Copy Copies To 1: DIPTI,VIRGINIA RAJAN MD, MD Jul 19, 2018 11:20
[2018-07-19] MEDS ORDERED: CEFD300C3 PO (11:23)
--- NOTE | 2018-07-19 11:26 | Discharge Instructions ---
Discharge [facility] Discharge Medications New, Converted or Re-Newed RX: Transmitted to Pharmacy New Medications: Cefdinir (Cefdinir) 300 Mg Capsule 300 MG PO BID, #8 CAP Continued Medications: Alprazolam (Alprazolam) 0.5 Mg Tablet 0.5 MG PO QID PRN for ANXIETY, TAB Cyclobenzaprine HCl (Cyclobenzaprine HCl) 5 Mg Tablet 5 MG PO TID PRN for MUSCLE SPASMS, TAB Diphenoxylate/Atropine (Diphenoxylat-Atrop 2.5-0.025/5) 60 Ml Liqd 5 ML PO QID PRN for DIARRHEA, EA Hydrocodone/Acetaminophen (Hydrocodone-Acetamin 7.5-325) 1 Each Tablet 1 TAB PO Q4H PRN for PAIN-MODERATE, TAB Levothyroxine Sodium (Levothyroxine Sodium) 100 Mcg Tablet 50 MCG PO DAILY, TAB LAST FILLED #30 04-26-18 TAKES 1/2 (100MCG) TABLET Morphine Sulfate (Morphine Sulfate ER) 30 Mg Tablet.er 30 MG PO 1700, TAB Ondansetron (Ondansetron Odt) 4 Mg Tab.rapdis 4 MG PO Q8H PRN for NAUSEA/VOMITING-1ST LINE, TAB Potassium Chloride (Potassium Chloride) 10 Meq Tablet.er 10 MEQ PO DAILY, TAB Temazepam (Temazepam) 15 Mg Capsule 15 MG PO HS, CAP Discontinued Medications: Amlodipine Besylate (Amlodipine Besylate) 5 Mg Tablet 5 MG PO DAILY, TAB Patient Instructions Goal/Follow Up Appt: You have a hospital followup on Monday @ [address] Hawley Patient Instructions: - Make sure you complete your antibiotics Activity & Diet Discharge Diet: No Restrictions Activity as Tolerated: Yes Copy Copies To 1: DIPTI,LORENZA ONTIVEROS,VIRGINIA Huerta MD Jul 19, 2018 11:26
--- NOTE | 2018-07-20 15:05 | Physician Query Clarification ---
PQ-Conflicting Diagnosis Admission/Discharge Admission Date: Jul 17, 2018 at 14:50 Discharge Date: Jul 19, 2018 at 12:30 The medical record reflects the following clinical scenario: History/Risk Factors: sepsis Clinical Findings: sepsis, acute renal failure Treatment: IVF Question: Do you agree with the impression of the septic shock per Dr. Cochran. Please document a response below. PHYSICIAN RESPONSE Do you agree w/Consulting Dx?: Yes Explanation of clincal finding Patient received IVF and was on a short course of pressors which is consistent with shock. In responding to this query, please exercise your independent professional judgment. The purpose of this communication is to more accurately reflect the complexity of your patients condition. The fact that a question is asked does not imply that any particular answer is desired or expected. Thank you for your timely response to this clarification. Requestors name: [ ] Phone # [ ] THIS PHYSICIAN QUERY FORM IS A PERMANENT PART OF THE MEDICAL RECORD SALOMON BULLOCK Jul 20, 2018 15:04 VIRGINIA ONTIVEROS MD Aug 01, 2018 08:47
== END 2018-07-19 12:30 | disposition home or self-care (01) | DRG 871 ==
LOC: EDUNIT# 12:17 → ER FS 12:19 → ICU 14:50 → 4TH 14:50 → UNDOADMIN 14:50
PROVIDERS: ADMIT Family Medicine; ATTEND Family Medicine
DX: A41.9 Sepsis, unspecified organism (principal); R65.21 Severe sepsis with septic shock; N30.00 Acute cystitis without hematuria; N17.9 Acute kidney failure, unspecified; C78.7 Secondary malignant neoplasm of liver and intrahepatic bile duct; C78.5 Secondary malignant neoplasm of large intestine and rectum; D64.81 Anemia due to antineoplastic chemotherapy; I10 Essential (primary) hypertension; Z66 Do not resuscitate; I95.1 Orthostatic hypotension; E03.9 Hypothyroidism, unspecified; E83.42 Hypomagnesemia; R74.8 Abnormal levels of other serum enzymes; T42.4X5A Adverse effect of benzodiazepines, initial encounter; Z85.038 Personal history of other malignant neoplasm of large intestine; Z92.21 Personal history of antineoplastic chemotherapy; Z79.899 Other long term (current) drug therapy
CPT/HCPCS: 36415; 51701; 71045; 80048; 80053; 80306; 81000; 83605; 83735; 84100; 84443; 85025; 85610; 85730; 87040; 87077; 87081; 87088; 87186; 87324; 87449; 93005; 96374; 96375